=== PATIENT | female | born 1955 | race Caucasian/White ===

== ENCOUNTER 2019-04-17 11:47 | Inpatient (IN) | payer OTHER ==
[~2019-04-17] VITALS: Ht 165.1 cm; Wt 75.0 kg
[2019-04-17] MEDS ORDERED: PROTONIX40 MG (12:02)
[2019-04-17 12:03] LABS: BASOPHILS 0.2 % (0-2); HEMATOCRIT 40.6 % (36.0-48.0); HEMOGLOBIN 14.2 g/dL (12-16); IMMATURE GRANULOCYTES 0.2 % (0-5); LYMPHOCYTES 33.8 % (15-50); MCH 30.7 pg (26.0-34.0); MCV 87.7 fL (80.0-100.0); MEAN PLATELET VOLUME 9.1 fL (7.4-10.4); MONOCYTES 7.9 % (2-11); NEUTROPHILS 53.9 % (40-80); PLATELET COUNT 232 10x3/uL (130-400); RBC 4.63 10x6/uL (4.00-5.40); RDW 12.5 % (11.5-14.5); WBC 6.2 10x3/uL (4.8-10.8)
[2019-04-17] MEDS ORDERED: LOPRESSOR25 MG (12:03)
[2019-04-17] MEDS ORDERED: HYDROCHLOROTHIA25 MG (12:03)
[2019-04-17] MEDS ORDERED: CARNITOR 11 GM/10 ML (12:03)
[2019-04-17] MEDS ORDERED: BUTALB-APAP-CA1 EACH (12:04)
[2019-04-17] MEDS ORDERED: BENTYL10 MG (12:04)
[2019-04-17] MEDS ORDERED: EFFEXOR25 MG (12:05)
[2019-04-17] MEDS ORDERED: PRAVACHOL20 MG (12:06)
[2019-04-17] MEDS ORDERED: AMITRIPTYLINE100 MG (12:06)
[2019-04-17 12:17] LABS: ANION GAP 17.1 mmol/L (8-16); BILIRUBIN - TOTAL 0.89 mg/dL (0.2-1.3); CALCIUM 9.3 mg/dL (8.5-10.1); CARBON DIOXIDE 25.2 mmol/L (21.0-32.0); CREATININE - SERUM 1.1 mg/dL (0.6-1.3); POTASSIUM - SERUM 3.3 mmol/L (3.5-5.1); PROTEIN - SERUM 7.6 g/dL (6.4-8.2)
[2019-04-17 12:19] LABS: APTT 22.9 SECONDS (22.8-39.4); INR 0.96 (0.85-1.17); PROTIME 12.3 SECONDS (11.6-15.0)
--- NOTE | 2019-04-17 12:25 | NUR ---
SPLINT PLACED ON PTS LEFT LEG, BY DR. GARCIA. PT TOL. STILES.
[2019-04-17 14:09] VITALS: BP 126/74; BMI 27.5
[2019-04-17 18:17] VITALS: BP 169/89
--- NOTE | 2019-04-17 18:17 | NUR ---
PT RECEIVED BACK FROM RECOVERY VIA BED TO ROOM 2203. EASILY AWAKENS. RESP EVEN AND UNLABORED. 02 @ 3L NC IN PLACE. DENIES PAIN AT THIS TIME. EXTERNAL FIXATOR TO LEFT LOWER EXTREMITY INTACT WITH LULI WRAP DRESSING. SCANT AMOUNT OF BLOOD NOTED TO LATERAL ASPECT OF LOWER LEFT LEG, MARKED WITH MARKER AT THIS TIME. PERIPHERAL PULSES PRESENT. GOOD CAP REFILL. CL WITHIN REACH. WILL CONTINUE TO MONITOR.
--- NOTE | 2019-04-17 19:15 | NUR ---
PT RESTING WHEN ENTERING THE ROOM. AROUSES WHEN NAME IS CALLED. AT BEDSIDE. PATIENT HAS LEFT LOWER LEG EXTERNAL FIXATION. LULI BANDAGE TO AREA. MINIMAL DRAINAGE NOTED. PROPPED ON TWO PILLOWS ORDERED. TOES ARE WARM TO TOUCH. PERIPHERAL PULES PALPATED. PT WIGGLES TOES WHEN PROMPTED.STATES "I CAN FEEL WHEN YOU TOUCH IT" BUT DENIES PAIN AT THIS TIME. RIGHT HAND IV THAT IS PATENT. SUPPLIED WITH ICE CHIPS FOR THROAT DISCOMFORT. DENIES FURTHER PAIN AT THIS TIME. PROVIDED MEDICATION EDUCATION FOR PATIENT. VERBALIZES UNDERSTANDING OF PLAN FOR PAIN CONTROL. INSTRUCTED PATIENT TO USE CALL LIGHT WHEN IN NEED OF ASSISTANCE. PATIENT VERBALIZES UNDERSTANDING. CALL LIGHT IS IN REACH OF PATIENT. BED LOCKED AND LOWERED. CPOC.
[2019-04-17 20:00] VITALS: BP 149/79
[2019-04-18] VITALS: BP 121/70; BP 128/68
[2019-04-18 04:00] VITALS: BP 151/70
--- NOTE | 2019-04-18 07:34 | NUR ---
PT IS RESTING IN BED WITH EYES OPEN. RESPIRATIONS ARE EVEN AND UNLABORED. RIGHT SCD IS ON. LEFT LEG IS IN EXTERNAL FIXATION DEVICE. PT REPORTS FEELING TO LLE AND IS ABLE TO WIGGLE TOES. CAP REFILL <3. PT REPORTS SLIGHT PAIN/PRESSURE. WILL ADDRESS SEE EMAR. PT WITH SLIGHT COUGH THAT IS REPORTED PRODUCTIVE. INCENTIVE SPIROMETER GIVEN WITH EDUCATION. PT DEMONSTRATED PROPER TECHNIQUE AND VERBALIZES UNDERSTANDING PERTAINING TO USE AND IMPORTANCE OF IS. PT DENIES PRESENCE OF N/V AT THIS TIME. PT DENIES FURTHER NEEDS AT THIS TIME. BED IS IN THE LOWEST POSITION. CALL LIGHT AND BEDSIDE TABLE ARE WITHIN REACH. SIDE RAILS X 2. WILL CONT TO MONITOR.
[2019-04-18 09:08] VITALS: BP 153/71
[2019-04-18 11:36] VITALS: BP 127/65
--- NOTE | 2019-04-18 14:11 | NUR ---
HOME MEDICATIONS COVERED WITH PT. HOME MEDICATIONS REORDERD PER DR ALBERT.
[2019-04-18 16:31] VITALS: BP 149/62
--- NOTE | 2019-04-18 19:15 | NUR ---
PT ALERT AND ORIENTED. IN ROOM. PT LOWER LEFT LEG REMAINS IN EXTERNAL FIXATION. CURRENTLY PROPPED ON TWO PILLOWS. TOES WARM TO TOUCH AND PATIENT WIGGLES TOES AND MOVES LEG WHEN PROMPTED. STATES "I CAN FEEL THE PAIN MUCH MORE TODAY." DRIED BLOOD NOTED TO THE BOTTOM OF BANDAGE. BEDSIDE COMMODE IN ROOM AND PATIENT USES WALKER WITH STAND BY ASSIST TO AND FROM BED TO BEDSIDE COMMODE. DENIES FURTHER ISSUES AT THIS TIME. CALL LIGHT IN REACH OF PATIENT. CPOC.
[2019-04-18 20:00] VITALS: BP 167/67
--- NOTE | 2019-04-19 03:00 | NUR ---
I have reviewed this patient and I concur with the Shift Assessment completed by the Licensed Practical Nurse today this shift.
[2019-04-19 04:00] VITALS: BP 126/68
--- NOTE | 2019-04-19 07:50 | NUR ---
AWAKE AND ALERT. ORIENTED X3. NO C/O AT THIS TIME. UP TO BSC WITH ONE PERSON MIN ASSIST. VOIDED WITHOUT DIFFICULTY. LUNGS ARE CLEAR BILATERALLY, NO COUGH NOTED. SKIN IS INTACT WITHOUT REDNESS EXCEPT INSISION TO LEFT LEG WHICH HAVE A DRY INTACT DRESSING IN PLACE. IV TO RIGHT HAND IS PATETN WITHOUT REDNESS AT INSERTION SITE. DENIES NEEDS.
--- NOTE | 2019-04-19 08:45 | NUR ---
SITTING UP IN BED EATING FOOD BROUGHT IN FROM OUTSIDE. REQUESTED AND GIVEN ONE HYDROCODONE PO FOR C/O LEFT LEG PAIN LEVEL 6. WILL MONITOR.
[2019-04-19 09:43] VITALS: Ht 165.1 cm; Wt 75.0 kg
[2019-04-19 12:23] VITALS: BP 117/62
--- NOTE | 2019-04-19 13:52 | NUR ---
BACK IN BED AT THIS TIME. REQUESTED AND GIVEN ONE HYDROCODONE PO FOR C/O LEFT LEG PAIN LEVEL 8. WILL MONITOR.
[2019-04-19 16:35] VITALS: BP 124/58
[2019-04-19 20:00] VITALS: BP 169/77
[2019-04-19 20:30] VITALS: BP 156/68
[2019-04-20] VITALS: BP 126/59
[2019-04-20 04:00] VITALS: BP 117/49
--- NOTE | 2019-04-20 07:18 | NUR ---
AWAKE AND ALERT. ORIENTED X3. UP TO BSC WITH MIN ASSIST OF ONE. VOIDED CLEAR YELLOW URINE WITHOUT DIFFICULTY. LUNGS ARE CLEAR BILATERALLY,, NO COUGH NOTED. SKIN IS INTACT WITHOUT REDNESS EXCEPT EXTERNAL FIXATOR IN PLACE TO LEFT LEG. NEURO CHECKS WNL. SL TO RIGHT HAND IS PATENT WITHOUT REDNESS AT INSERTION SITE. DENIES NEEDS.
[2019-04-20 08:24] VITALS: BP 183/90
[2019-04-20] MEDS ORDERED: HYDROCODON-ACE1 EA10 PO (08:45)
[2019-04-20] MEDS ORDERED: ELIQUIS2.5 MG PO (08:45)
--- NOTE | 2019-04-20 09:08 | NUR ---
ATE MOST OF BREAKFAST. REQUESTED AND GIVEN ONE HYDROCODONE PO FOR C/O LEFT LEG PAIN LEVEL 3. WILL MONITOR. HAPPY TO BE GOING HOME
--- NOTE | 2019-04-20 10:45 | NUR ---
DISCHARGE ORDERS RECEIVED. WAITING ON EQUIPMENT TO D/C. SL TO RIGHT HAND D/C WITH CATHETER INTACT.
--- NOTE | 2019-04-20 10:59 | MORECARE ---
CASE MANAGEMENT DISCHARGE SUMMARY PATIENT: LAURA LOVE UNIT: [id number] ADM DATE: 04/17/19 AGE: 64 : 53 SEX: F ROOM/BED: D.2203 AUTHOR: JEFFERY TEMPLE PHYSICIAN: REFERRING PHYSICIAN: LISE ALBERT MD DATE OF SERVICE: 04/20/19 Discharge Plan Patient Name: [facility]URA LOVE [facility] [facility] 1955 Planned Disposition: Home or Self Care Anticipated Discharge Date: Discharge Date: Expected LOS: Initial Reviewer: [email or web address] Initial Review Date: 04/17/2019 Generated: 04/20/19 11:59 am Comments DCP- Discharge Planning Updated by [email or web address]: Camille Richardson on 04/20/19 9:[address] Patient is discharging home today and will be returning back to [place]. They have already made an appointment with an Ortho in [place]. Her has bought a BSC and a walker (the walker that was ordered in the hospital the [employer] company did not take her insurance and the got upset and left to go buy one) She has another walker and a wheelchair in [place]. We have given her a copy of her records and a copy of her xrays and ct's on a disc for her to take to her Ortho in [place]. Patient and denies any other needs at this time. External Providers External Provider: [facility] Next Contact Date: Service Request Date: Service Type: Resolution: Reviewer: Comments: Patient Name: LAURA LOVE Page [id number] at 1059 All edits/amendments must be made on the electronic document DICTATION DATE: 04/20/19 1059 GRAB OPERATOR: CRISTY 04/20/19 1059 RPT#: [id number] DC DATE: STATUS: ADM IN [facility] [address] [place] [address] END OF REPORT
--- NOTE | 2019-04-20 12:06 | NUR ---
DISCHARGED TO HOME WITH AMBULATORY. DISCHARGE INSTRUCTIONS GIVEN BOTH VERBALLY AND WRITTEN. ALL QUESTIONS ANSWERED. PATIENT AND VERBALZIED UNDERSTANDING OF SAME. NEEDED PRESCRIPTIONS GIVEN TO PATIENT. ALL BELONGINGS WITH PATIENT.
--- NOTE | 2019-04-20 15:58 | MORECARE ---
CASE MANAGEMENT DISCHARGE SUMMARY PATIENT: LAURA LOVE UNIT: [id number] ADM DATE: 04/17/19 AGE: 64 : 54 SEX: F ROOM/BED: D.2203 AUTHOR: JEFFERY TEMPLE PHYSICIAN: REFERRING PHYSICIAN: LISE ALBERT MD DATE OF SERVICE: 04/20/19 Discharge Plan Patient Name: LAURA LOVE [facility] [facility] 1955 Planned Disposition: Home or Self Care Anticipated Discharge Date: Discharge Date: 04/20/2019 Expected LOS: Initial Reviewer: [email or web address] Initial Review Date: 04/17/2019 Generated: 04/20/19 4:57 pm Comments DCP- Discharge Planning Updated by [email or web address]: Camille Richardson on 04/20/19 9:[address] Patient is discharging home today and will be returning back to [place]. They have already made an appointment with an Ortho in [place]. Her has bought a BSC and a walker (the walker that was ordered in the hospital the [employer] company did not take her insurance and the got upset and left to go buy one) She has another walker and a wheelchair in [place]. We have given her a copy of her records and a copy of her xrays and ct's on a disc for her to take to her Ortho in [place]. Patient and denies any other needs at this time. Last DP export: 04/20/19 9:59 am Patient Name: LAURA LOVE Page [id number] at 1558 All edits/amendments must be made on the electronic document DICTATION DATE: 04/20/19 1557 ENVIRONMENTAL PROTECTION ECONOMIST: CRISTY 04/20/19 1557 RPT#: [id number] DC DATE:04/20/19 STATUS: DIS IN [facility] [address] [place] [address] END OF REPORT
--- NOTE | 2019-05-06 11:00 | OP ---
PATIENT NAME: LAURA LOVE MEDICAL RECORD: [id number] :53 LOCATION:D.MS [id number] ADMISSION DATE:04/17/19 SURGEON: LISE ALBERT MD DATE OF OPERATION: 04/17/2019 PREOPERATIVE DIAGNOSES: 1. Comminuted tibia fracture. 2. Fibular fracture. 3. Osteoporosis. POSTOPERATIVE DIAGNOSES: 1. Comminuted tibia fracture. 2. Fibular fracture. 3. Osteoporosis. PROCEDURE: 1. Open reduction internal fixation of the fibula. 2. External fixator application (birail) of the tibia. SURGEON: Lise Albert MD ANESTHESIA: General. INTRAOPERATIVE COMPLICATIONS: None. SUMMARY OF PATHOLOGIC FINDINGS: The patient was indeed found to have substantial osteoporosis of the left lower extremity. She had a multi-fragmented comminuted fracture just above the mortise for this reason along with the amount of swelling. The decision was made to fix the fibula and spanned the tibia for good alignment. OPERATIVE SUMMARY IN DETAIL: After obtaining the appropriate preoperative orthopedic surgery consent as well as anesthetic consultation, evaluation and clearance, the patient was brought to the operating room and placed on the operating table in supine position. After general laryngeal mask airway was administered, tourniquet was placed on the proximal aspect of the left lower extremity. Left lower extremity was prepped and draped in routine sterile fashion. The leg was elevated and exsanguinated, tourniquet was inflated to 350 mmHg. Attention was first turned to fixation of the fibula to reestablish length and off for some measure of stability. Incision was taken down to the level of the fibular fracture where it was aligned and fixed using the [place] VariAx compression and locking plate. This resulted in good anatomic shinto of the fibula. Having completed this, under fluoroscopic guidance, birail Lexington Sanchez II MRI compatible external fixator was applied with 2 apex pins proximally, through and through apex pin distally as well as an anterior to posterior apex pin to help control recurvatum. With the appropriate amount of traction under fluoroscopic guidance, reduction was performed and the birail external fixator was tightened. At this point, a healed bridge was placed with a half ring to help decrease the chance for posterior heel ulceration. Final radiographs were taken both AP and lateral planes and submitted for radiologist review. The fibula was then irrigated. Fibula incision was then irrigated and closed with 2-0 Vicryl and skin tej. Downey pins were then dressed with usual Xeroform gauze. Sterile dressings were applied. Tourniquet was deflated. The patient was awakened and taken to the recovery room in stable condition. All final needle and sponge counts were OPERATIVE REPORT [id number] LAURA LOVE. TRANSINT:[id number] Voice Confirmation ID: [id number] DOCUMENT ID: [id number] ROOSEVELT VU, LISE HERNÁNDEZ at 1100 CC: [id number] DICTATION DATE: 05/06/19908 ENGINEER GEOPHYSICAL LABORATORY: 05/06/19 0938 DIS IN 04/20/19 [id number] [place] [address]
== END 2019-04-20 12:07 | disposition home or self-care (01) | DRG 494 ==
LOC: D.ER 11:47 → D.MS 13:33
PROVIDERS: Emergency Medicine; ADMIT Orthopaedic Surgery; ATTEND Orthopaedic Surgery
PROC: 0QSK04Z Reposition Left Fibula with Internal Fixation Device, Open Approach (ICD-10-PCS; principal; 2019-04-17 15:00)
PROC: 0QHH04Z Insertion of Internal Fixation Device into Left Tibia, Open Approach (ICD-10-PCS; 2019-04-17 15:00)
DX: M80.862A Other osteoporosis with current pathological fracture, left lower leg, initial encounter for fracture (principal); W19.XXXA Unspecified fall, initial encounter; I10 Essential (primary) hypertension; E78.5 Hyperlipidemia, unspecified